=== PATIENT | female | born 1945 | race Caucasian/White ===

== ENCOUNTER 2018-03-30 11:36 | Emergency (ER) | payer MEDICARE, MEDICAID ==
[~2018-03-30] VITALS: Ht 172.7 cm; Wt 41.0 kg
[~2018-03-30 11:36] MED LIST: DIL100C PO; IBUP-814 PO; MACROBID PO
[2018-03-30 12:22] LABS: BASOPHILS # (AUTO) 0.1 X10'3 (0-0.2); EOSINOPHILS % (AUTO) 0.5 % (0-6); HEMATOCRIT 36.8 % (35.0-45.0); HEMOGLOBIN 12.4 g/dl (12.0-16.0); LYMPHOCYTES # (AUTO) 1.4 X10'3 (1.1-4.8); LYMPHOCYTES % (AUTO) 21.3 % (21-51); MEAN CORPUSCULAR HGB CONC 33.9 % (33.0-36.5); MEAN CORPUSCULAR VOLUME 106.5 FL (78-98); MEAN PLATELET VOLUME 8.6 FL (7.4-10.4); MONOCYTES # (AUTO) 0.5 X10'3 (0-0.9); NEUTROPHILS # (AUTO) 4.6 X10'3 (1.8-7.7); NEUTROPHILS % (AUTO) 69.2 % (42-75); PLATELET COUNT 142 X10'3 (140-440); RED BLOOD COUNT 3.45 X10'6 (4.20-5.60); RED CELL DISTRIBUTION WIDTH 14.1 % (11.5-14.5); WHITE BLOOD COUNT 6.6 X10'3 (4.5-11.0)
[2018-03-30 12:43] LABS: ALANINE AMINOTRANSFERASE 83 U/L (12-78); ALBUMIN 3.8 G/DL (3.4-5.0); ALBUMIN/GLOBULIN RATIO 0.9 (1.1-1.5); ALKALINE PHOSPHATASE 103 IU/L (46-116); ANION GAP 12 (8-16); ASPARTATE AMINO TRANSFERASE 65 U/L (10-37); BILIRUBIN,TOTAL 0.4 MG/DL (0.1-1.0); BLOOD UREA NITROGEN 25 MG/DL (7-18); BUN/CREATININE RATIO 24.3 (6.6-38.0); CALCIUM 8.9 MG/DL (8.5-10.1); CHLORIDE 104 MMOL/L (99-107); CREATININE 1.03 MG/DL (0.40-0.90); GLUCOSE 149 MG/DL (70-104); POTASSIUM 3.2 MMOL/L (3.5-5.1); SODIUM 143 MMOL/L (135-145); TOTAL CARBON DIOXIDE 26.8 MMOL/L (24-32); eGFR 53 ML/MIN
[2018-03-30] MEDS ORDERED: CEPH-571 PO (12:43)
[2018-03-30] MEDS ORDERED: INDO50CA PO (12:43)
[2018-03-30 12:55] VITALS: BP 133/35
== END 2018-03-30 12:57 | disposition home or self-care (01) ==
LOC: ER 11:37
DX: L03.115 Cellulitis of right lower limb (principal); J44.9 Chronic obstructive pulmonary disease, unspecified; F03.90 Unspecified dementia, unspecified severity, without behavioral disturbance, psychotic disturbance, mood disturbance, and anxiety; F15.10 Other stimulant abuse, uncomplicated; Z88.0 Allergy status to penicillin; Z88.5 Allergy status to narcotic agent; Z79.899 Other long term (current) drug therapy
CPT/HCPCS: 36415; 73630; 80053; 84550; 85025; 85651; 99285

== ENCOUNTER 2020-12-04 16:05 | Emergency (ER) | payer MEDICARE, MEDICAID ==
[~2020-12-04] VITALS: Ht 170.2 cm; Wt 47.7 kg
[~2020-12-04 16:05] MED LIST changes: +CEPH-571 PO; +INDO50CA96 PO
[2020-12-04 17:11] LABS: CLARITY,URINE CLOUDY (Clear); COLOR,URINE YELLOW (Yellow); GLUCOSE, URINE 500 mg/dl (Neg); KETONES,URINE TRACE mg/dl (Neg); LEUKOCYTE ESTERASE ,URINE SMALL (Neg); NITRITES, URINE POSITIVE (Neg); OCCULT BLOOD,URINE NEGATIVE (Neg); PROTEIN,URINE NEGATIVE (Neg); UROBILINOGEN,URINE 0.2 E.U/dL (0.2-1.0)
[2020-12-04 17:18] LABS: UA COLLECTION TYPE CLN CATCH MIDSTREAM
[2020-12-04 17:20] LABS: MUCUS STRANDS NONE SEEN /LPF (Neg); SQUAMOUS EPITHELIAL CELL,UR MODERATE /LPF (FEW)
[2020-12-04 17:21] LABS: WBC,URINE 30-50 /HPF (0-4)
[2020-12-04 17:22] LABS: BACTERIA,URINE 4+ /HPF (Neg); CAL OXALATE CRYSTALS 1+ /HPF (NEGATIVE); RBC,URINE NONE SEEN /HPF (0-2); TRANSITIONAL EPI CELLS,URINE FEW /HPF
[2020-12-04] MEDS ORDERED: LIDOcaine 1% 30ml preserv. free vial IJ ONE (18:00)
[2020-12-04] MEDS ORDERED: acetaminophen 325mg tablet PO ONE ×2 (18:45)
--- NOTE | 2020-12-04 19:09 | NUR ---
Pt awaiting discharge, family member just updated that Provider is busy w another pt at this time and is aware they are anxious for DC. Pt and family member are appropriate and polite and understanding of the wait.
--- NOTE | 2020-12-04 19:15 | NUR ---
LYLE GALICIA TALKING WITH PT AND RONALD NOW ABOUT DC INSTRUCITONS.
[2020-12-04] MEDS ORDERED: CEPH250T PO (19:22)
[2020-12-04 19:44] VITALS: BP 131/57
== END 2020-12-04 19:53 | disposition home or self-care (01) ==
LOC: ER 16:06
DX: S52.501A Unspecified fracture of the lower end of right radius, initial encounter for closed fracture (principal); J44.9 Chronic obstructive pulmonary disease, unspecified; F15.90 Other stimulant use, unspecified, uncomplicated; Z88.0 Allergy status to penicillin; Z88.5 Allergy status to narcotic agent; Z79.899 Other long term (current) drug therapy; W01.0XXA Fall on same level from slipping, tripping and stumbling without subsequent striking against object, initial encounter; Y93.89 Activity, other specified; Y92.89 Other specified places as the place of occurrence of the external cause; Y99.8 Other external cause status
CPT/HCPCS: 29125; 73080; 73110; 81001; 87077; 87088; 87186; 96374; 99284